=== PATIENT | female | born 1995 | race Hispanic/Latino ===

== ENCOUNTER 2020-05-03 14:36 | Emergency (ER) | payer SELFPAY ==
[2020-05-03 15:00] VITALS: BP 131/89
[2020-05-03 15:41] LABS: Basophils % (Auto) 0.3 % (0.0-1.8); Eosinophils # (Auto) 0.2 K/mm3 (0.0-0.4); Eosinophils % (Auto) 2.2 % (0.0-4.3); Hematocrit 40.8 % (30.3-42.9); Hemoglobin 13.7 gm/dl (10.1-14.3); Lymphocytes # (Auto) 2.6 K/mm3 (1.2-5.4); Lymphocytes % (Auto) 28.7 % (13.4-35.0); Mean Corpuscular HGB Conc 34 % (30-34); Mean Corpuscular Volume 89 fl (79-97); Monocytes # (Auto) 0.9 K/mm3 (0.0-0.8); Monocytes % (Auto) 10.3 % (0.0-7.3); Platelet Count 218 K/mm3 (140-440); Red Cell Distribution Width 13.3 % (13.2-15.2)
[2020-05-03 15:51] LABS: BUN/Creatinine Ratio 15; Blood Urea Nitrogen 12 mg/dL (7-17); Calcium 9.4 mg/dL (8.4-10.2); Hemolysis Index 5
[2020-05-03 15:54] LABS: Alanine Aminotransferase 10 units/L (7-56); Albumin 4.7 g/dL (3.9-5)
[2020-05-03 15:57] LABS: Bilirubin,Direct < 0.2 mg/dL (0-0.2)
[2020-05-03] MEDS ORDERED: ONDANSETRON 4 MG/2 ML INJ IV ONE (17:07)
[2020-05-03] MEDS ORDERED: MORPHINE 4 MG/1 ML INJ IV ONE (17:07)
[2020-05-03 17:10] LABS: Bilirubin,Urine NEG (Negative); Blood,Urine LG (Negative); Color,Urine Yellow (Yellow); Mucus,Urine 2+ /HPF; Urobilinogen,Urine < 2.0 mg/dL (<2.0); WBC,Urine > 182.0 /HPF (0.0-6.0)
[2020-05-03] MEDS ORDERED: cefTRIAXone/NS 1 GM/50 ML 1 GM/50 ML BAG IV ONE (17:21)
--- NOTE | 2020-05-03 18:27 | Cat Scan Report ---
CT ABDOMEN AND PELVIS WITH CONTRAST INDICATION / CLINICAL INFORMATION: abd pain, rlq. TECHNIQUE: Axial CT images were obtained through the abdomen and pelvis following the administration of intraven ous contrast. All CT scans at this location are performed using CT dose reduction for ALARA by means of automated exposure control. COMPARISON: None available. FINDINGS: LOWER CHEST: No significant abnormality. LIVER: No significant abnormality. GALLBLADDER: No significant abnormality. PANCREAS: No significant abnormality. SPLEEN: No significant abnormality. ADRENALS: No significant abnormality. KIDNEYS / URETERS: No significant abnormality. URINARY BLADDER: There is circumferential urinary bladder wall thickening. REPRODUCTIVE ORGANS: No significant abnormality. STOMACH / SMALL BOWEL: No significant abnormality. COLON: No significant abnormality. APPENDIX: No significant abnormality. PERITONEUM: No free fluid. No free air. No fluid collection. LYMPH NODES: No significant adenopathy. AORTA / ARTERIES: No significant abnormality. IVC / VEINS: Somewhat engorged pelvic veins. SKELETAL SYSTEM: No significant abnormality. ADDITIONAL FINDINGS: None. IMPRESSION: 1. Circumferential urinary bladder wall thickening which could represent cystitis. Correlation with u rinalysis is recommended. 2. The appendix is normal. Signer Name: Venkata Saravia MD Signed: 05/03/2020 6:23 PM Workstation Name: [id number]
--- NOTE | 2020-05-03 18:36 | Emergency Department Report ---
ED Abdominal Pain HPI - General Chief Complaint: Abdominal Pain Stated Complaint: ABD/BACK PAIN PUI?: No Time Seen by Provider: 05/03/20 18:28 Source: patient Mode of arrival: Ambulatory Limitations: No Limitations - History of Present Illness Initial Comments: 25-year-old female presenting with chief complaint of abdominal pain, gradual onset constant and worsening over the past week. She reports associated nausea but denies vomiting or fever. She denies any changes to bowel habits. She does report dysuria and frequency. Symptoms are described as moderate to severe with no alleviating or exacerbating factors. Severity scale (0 -10): 10 - Related Data Previous Rx's Medication Instructions Recorded Last Taken Type Naproxen [Naprosyn] 500 mg PO BID #20 tablet 05/03/20 Unknown Rx Promethazine [Phenergan] 25 mg PO Q6HR PRN #12 tab 05/03/20 Unknown Rx cephALEXin [Keflex] 500 mg PO Q12HR #20 cap 05/03/20 Unknown Rx Allergies Allergy/AdvReac Type Severity Reaction Status Date / Time No Known Allergies Allergy Unverified 05/03/20 14:56 ED Review of Systems ROS: Stated complaint: ABD/BACK PAIN Other details as noted in HPI Comment: All other systems reviewed and negative Gastrointestinal: as per HPI Genitourinary: as per HPI ED Past Medical Hx - Past Medical History Previous Medical History?: No - Surgical History Past Surgical History?: No - Medications Home Medications: Home Medications Medication Instructions Recorded Confirmed Last Taken Type Naproxen [Naprosyn] 500 mg PO BID #20 tablet 05/03/20 Unknown Rx Promethazine [Phenergan] 25 mg PO Q6HR PRN #12 tab 05/03/20 Unknown Rx cephALEXin [Keflex] 500 mg PO Q12HR #20 cap 05/03/20 Unknown Rx ED Physical Exam - General Limitations: No Limitations General appearance: alert, in no apparent distress - Head Head exam: Present: atraumatic, normocephalic - Eye Eye exam: Present: normal appearance - ENT ENT exam: Present: mucous membranes moist - Neck Neck exam: Present: normal inspection - Respiratory Respiratory exam: Present: normal lung sounds bilaterally. Absent: respiratory distress - Cardiovascular Cardiovascular Exam: Present: regular rate, normal rhythm. Absent: systolic murmur, diastolic murmur, rubs, gallop - GI/Abdominal GI/Abdominal exam: Present: soft, tenderness (RLQ, R CVA), normal bowel sounds. Absent: distended, guarding, rebound - Extremities Exam Extremities exam: Present: normal inspection - Back Exam Back exam: Present: normal inspection - Neurological Exam Neurological exam: Present: alert, oriented X3 - Psychiatric Psychiatric exam: Present: normal affect, normal mood - Skin Skin exam: Present: warm, dry, intact, normal color. Absent: rash ED Course Vital Signs 05/03/20 05/03/20 14:59 18:00 Temperature 98.6 F Pulse Rate 75 Respiratory 18 18 Rate Blood Pressure 131/89 [Left] O2 Sat by Pulse 98 Oximetry ED Medical Decision Making - Lab Data Result diagrams: 05/03/20 15:27 05/03/20 15:27 Lab Results 05/03/20 05/03/20 05/03/20 Range/Units 15:27 15:27 15:27 WBC 8.9 (4.5-11.0) K/mm3 RBC 4.60 (3.65-5.03) M/mm3 Hgb 13.7 (10.1-14.3) gm/dl Hct 40.8 (30.3-42.9) % MCV 89 (79-97) fl MCH 30 (28-32) pg MCHC 34 (30-34) % RDW 13.3 (13.2-15.2) % Plt Count 218 (140-440) K/mm3 Lymph % (Auto) 28.7 (13.4-35.0) % [place] % (Auto) 10.3 H (0.0-7.3) % Eos % (Auto) 2.2 (0.0-4.3) % Baso % (Auto) 0.3 (0.0-1.8) % Lymph # (Auto) 2.6 (1.2-5.4) K/mm3 [place] # (Auto) 0.9 H (0.0-0.8) K/mm3 Eos # (Auto) 0.2 (0.0-0.4) K/mm3 Baso # (Auto) 0.0 (0.0-0.1) K/mm3 Seg Neutrophils % 58.5 (40.0-70.0) % Seg Neutrophils # 5.2 (1.8-7.7) K/mm3 Sodium 137 (137-145) mmol/L Potassium 4.0 (3.6-5.0) mmol/L Chloride 99.9 (98-107) mmol/L Carbon Dioxide 23 (22-30) mmol/L Anion Gap 18 mmol/L BUN 12 (7-17) mg/dL Creatinine 0.8 (0.6-1.2) mg/dL Estimated GFR > 60 ml/min BUN/Creatinine Ratio 15 % Glucose 88 (65-100) mg/dL Calcium 9.4 (8.4-10.2) mg/dL Total Bilirubin (0.1-1.2) mg/dL Direct Bilirubin (0-0.2) mg/dL Indirect Bilirubin mg/dL AST (5-40) units/L ALT (7-56) units/L Alkaline Phosphatase (35-129) units/L Total Protein (6.3-8.2) g/dL Albumin (3.9-5) g/dL Albumin/Globulin Ratio % Lipase (13-60) units/L HCG, Quant 0.581 (0-4) mIU/mL Urine Color (Yellow) Urine Turbidity (Clear) Urine pH (5.0-7.0) Ur Specific [place] (1.003-1.030) Urine Protein (Negative) mg/dL Urine Glucose (UA) (Negative) mg/dL Urine Ketones (Negative) mg/dL Urine Blood (Negative) Urine Nitrite (Negative) Urine Bilirubin (Negative) Urine Urobilinogen (<2.0) mg/dL Ur Leukocyte Esterase (Negative) Urine WBC (Auto) (0.0-6.0) /HPF Urine RBC (Auto) (0.0-6.0) /HPF U Epithel Cells (Auto) (0-13.0) /HPF Urine WBC Clumps /HPF Urine Mucus /HPF 05/03/20 05/03/20 Range/Units 15:32 16:50 WBC (4.5-11.0) K/mm3 RBC (3.65-5.03) M/mm3 Hgb (10.1-14.3) gm/dl Hct (30.3-42.9) % MCV (79-97) fl MCH (28-32) pg MCHC (30-34) % RDW (13.2-15.2) % Plt Count (140-440) K/mm3 Lymph % (Auto) (13.4-35.0) % [place] % (Auto) (0.0-7.3) % Eos % (Auto) (0.0-4.3) % Baso % (Auto) (0.0-1.8) % Lymph # (Auto) (1.2-5.4) K/mm3 [place] # (Auto) (0.0-0.8) K/mm3 Eos # (Auto) (0.0-0.4) K/mm3 Baso # (Auto) (0.0-0.1) K/mm3 Seg Neutrophils % (40.0-70.0) % Seg Neutrophils # (1.8-7.7) K/mm3 Sodium (137-145) mmol/L Potassium (3.6-5.0) mmol/L Chloride (98-107) mmol/L Carbon Dioxide (22-30) mmol/L Anion Gap mmol/L BUN (7-17) mg/dL Creatinine (0.6-1.2) mg/dL Estimated GFR ml/min BUN/Creatinine Ratio % Glucose (65-100) mg/dL Calcium (8.4-10.2) mg/dL Total Bilirubin 0.30 (0.1-1.2) mg/dL Direct Bilirubin < 0.2 (0-0.2) mg/dL Indirect Bilirubin 0.1 mg/dL AST 19 (5-40) units/L ALT 10 (7-56) units/L Alkaline Phosphatase 57 (35-129) units/L Total Protein 8.3 H (6.3-8.2) g/dL Albumin 4.7 (3.9-5) g/dL Albumin/Globulin Ratio 1.3 % Lipase 36 (13-60) units/L HCG, Quant (0-4) mIU/mL Urine Color Yellow (Yellow) Urine Turbidity Cloudy (Clear) Urine pH 7.0 (5.0-7.0) Ur Specific [place] 1.017 (1.003-1.030) Urine Protein 100 mg/dl (Negative) mg/dL Urine Glucose (UA) Neg (Negative) mg/dL Urine Ketones Neg (Negative) mg/dL Urine Blood Lg (Negative) Urine Nitrite Neg (Negative) Urine Bilirubin Neg (Negative) Urine Urobilinogen < 2.0 (<2.0) mg/dL Ur Leukocyte Esterase Lg (Negative) Urine WBC (Auto) > 182.0 H (0.0-6.0) /HPF Urine RBC (Auto) 97.0 (0.0-6.0) /HPF U Epithel Cells (Auto) 1.0 (0-13.0) /HPF Urine WBC Clumps 3+ /HPF Urine Mucus 2+ /HPF - Radiology Data Radiology results: report reviewed Cystitis, normal appendix - Medical Decision Making Patient presenting with abdominal pain radiating to the back x1 week. She does have some UTI symptoms. She is quite tender in the right lower quadrant on exam. Morphine and Zofran given. We will check labs, urinalysis, CT to rule out appendicitis. Labs are overall unremarkable, urinalysis consistent with infectious process, Rocephin given and culture sent. CT shows cystitis but negative for appendicitis or any other acute process. We will treat with oral antibiotics and patient will follow-up with PCP and return here if worse. - Differential Diagnosis UTI, stone, appendicitis Critical care attestation.: If time is entered above; I have spent that time in minutes in the direct care of this critically ill patient, excluding procedure time. ED Disposition Clinical Impression: UTI (urinary tract infection) Qualifiers: Urinary tract infection type: acute cystitis Hematuria presence: with hematuria Qualified Code(s): N30.01 - Acute cystitis with hematuria Disposition: TO HOME OR SELFCARE Is pt being admited?: No Condition: Good Instructions: Abdominal Pain (ED), Urinary Tract Infection in Women (ED) Prescriptions: cephALEXin [Keflex] 500 mg PO Q12HR #20 cap Naproxen [Naprosyn] 500 mg PO BID #20 tablet Promethazine [Phenergan] 25 mg PO Q6HR PRN #12 tab PRN Reason: Nausea Referrals: PRIMARY CARE, [Primary Care Provider] - 3-5 Days Time of Disposition: 18:35
== END 2020-05-03 18:55 | disposition home or self-care (01) ==
LOC: ED 14:36
DX: N39.0 Urinary tract infection, site not specified (principal); Z79.899 Other long term (current) drug therapy
CPT/HCPCS: 36415; 74177; 80048; 80076; 81001; 83690; 84702; 85025; 87086; 96365; 96375; 99284; J0696; J2270; J2405; Q9967